=== PATIENT | male | born 1965 | race Two or more races ===

== ENCOUNTER → 2023-03-16 06:00 | Outpatient (CLI) | payer OTHER ==
[~2023-03-16] VITALS: Ht 180.3 cm; Wt 78.0 kg
[~2023-03-16 06:00] MED LIST: JARDIANCE10 MG PO; SIMVASTATIN10 MG PO; SOLIQUA 100 UNIT3 ML
== END | disposition home or self-care (01) ==
LOC: LAB 06:00 → ADM 12:45 → CIR.AMB 03-21 08:30 → EDSTATUS 03-21 12:45 → CIR.AMB 03-21 12:45
PROVIDERS: ATTEND Urology
DX: Z01.810 Encounter for preprocedural cardiovascular examination (principal); N47.1 Phimosis